=== PATIENT | female | born 2000 | race Caucasian/White ===

== ENCOUNTER 2025-02-07 19:25 | Emergency (ER) | payer OTHER, SELFPAY ==
[2025-02-07 19:26] VITALS: BP 183/100; PULSE 115; RESP 19; TEMP 36.8; O2SAT 100; BMI 33.5
--- NOTE | 2025-02-07 19:46 | EX.ED.GENINJ ---
HPI <HIGINIO Tate - Last Filed: 02/07/25 21:44> History of Present Illness Chief Complaint: Laceration Narrative Narrative: 25-year-old female was using a knife to cut a thawing turkey and accidentally lacerated her left forearm. Bleeding was controlled prior to arrival. No weakness or numbness or tingling. Tetanus up-to-date in 2020. PFSH <HIGINIO Tate - Last Filed: 02/07/25 21:44> PFSH Medical History no medical history Allergy/AdvReac Type Severity Reaction Status Date / Time amoxicillin (From Augmentin) AdvReac Rash Verified 02/07/25 19:29 clavulanic acid (From AdvReac Rash Verified 02/07/25 19:29 Augmentin) Penicillins AdvReac NEEDS Verified 02/07/25 19:29 FOLLOW-UP Social History Smoking Status: Never smoker ROS <HIGINIO Tate - Last Filed: 02/07/25 21:44> ROS ED ROS Narrative Neuro: Negative for motor/sensory dysfunction. Skin: Positive for laceration. Musc: Negative for joint pain. EXAM <HIGINIO Tate - Last Filed: 02/07/25 21:44> Physical Exam Narrative Exam Narrative: CONST: Patient sitting in no acute distress. EYES: Normal inspection. NECK: Normal inspection. RESP: No respiratory distress, CTAB. CVS: Regular rate and rhythm, no murmur, no gallop. SKIN: L-shaped laceration left volar forearm 2.5 x 1 cm. No active bleeding. EXTREMITIES: Normal appearance, full range of motion of the left elbow wrist and hand. Normal motor and sensory function in median radial and ulnar distributions. 2+ radial pulse. NEURO: Alert and answering questions appropriately. PSYCH: Normal affect. Const Vital Signs: 02/07/25 19:26 Temperature 98.2 F Temperature Source Temporal Pulse Rate 115 H Respiratory Rate 19 H Blood Pressure 183/100 H Blood Pressure Mean 127 Pulse Ox 100 Oxygen Delivery Method Room Air <Dr. Leandro Bass, DO - Last Filed: 02/07/25 21:29> Physical Exam Const Vital Signs: 02/07/25 19:26 Temperature 98.2 F Temperature Source Temporal Pulse Rate 115 H Respiratory Rate 19 H Blood Pressure 183/100 H Blood Pressure Mean 127 Pulse Ox 100 Oxygen Delivery Method Room Air PROC <HIGINIO Tate - Last Filed: 02/07/25 21:44> Procedures Lacerations left forearm: Length: 3.5 cm Depth: Skin Shape: Linear Prep: Sterile Conditions Laceration repair: Irrigated and Lidocaine with epi Irrigated (ml): 100 Number of Sutures/[place]: 5 Suture Information: Ethilon and 5-0 MDM <Dr. Leandro Bass DO - Last Filed: 02/07/25 21:29> MDM History & Record Review Discussion w/independent historian: Patient and Family Lab Data Attestation: I reviewed the patient's lab results. Treatment and Re-Evaluation Narrative: I have personally performed a face to face assessment of the patient and have reviewed the STEPHANIE Note. I performed a substantive portion of the visit including all aspects of the following. My miner findings include: History is 25-year-old female sustained a volar wrist laceration while cutting a semifrozen turkey with a knife. Bleeding controlled at the scene. No distal symptoms. Exam is there is an L-shaped laceration measuring about 2-1/2 x 1 cm. Bleeding controlled. Neurovascular intact distal. Normal tendon function. Medical Decison Making local wound care performed by physician tv production assistant. Please see their note. Stitches will need to be removed 7 to 10 days. Local wound care discussed. Discharge Plan Triage Chief Complaint: Laceration ED Midlevel Provider: Skye Khanna ED Provider: Leandro Bass Dx/Rx/DC Orders Clinical Impression: Laceration of forearm, left Instructions: ED Laceration Extremity Primary Care Provider: Cecy Reece Referrals: Muriel Scales MD [Non-Staff] - Activity Restrictions/Additional Instructions: There are 5 stitches in the left forearm. You can keep covered with bacitracin and a bandage at work. Sutures need removed in 7 to 10 days. Return for reevaluation if you develop redness, swelling, pus or fever. Print Language: Citizen [place] Disposition Disposition: Home, Self Care Discharge Date/Time: 02/07/25 20:33
== END 2025-02-07 20:33 | disposition home or self-care (01) ==
LOC: ED 19:55
PROVIDERS: Emergency Provider Emergency Medicine; PCP Family Medicine; Visit Provider Emergency Medicine
DX: S51.812A Laceration without foreign body of left forearm, initial encounter (principal); W26.0XXA Contact with knife, initial encounter
CPT/HCPCS: 12002; 99284